=== PATIENT | male | born 2000 | race African-American/Black ===

== ENCOUNTER 2020-03-02 10:08 | Emergency (ER) | payer OTHER, SELFPAY ==
--- NOTE | ~2020-03-02 | XR_ITS ---
EXAMINATION: XR orbits min 4V DATE: 03/02/2020 10:51 INDICATION: Swollen left eye after injury. TECHNIQUE: 4 views of the orbits were obtained. COMPARISON: None. FINDINGS: There is slight rightward deviation of the nasal septum. No fracture. IMPRESSION: 1. No fracture. Reviewed, dictated and finalized at location B. IMPRESSION: 1. No fracture.
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
[2020-03-02 10:25] VITALS: BP 112/84; PULSE 82; RESP 16; TEMP 36.6; O2SAT 99
== END 2020-03-02 11:10 | disposition home or self-care (01) ==
PROVIDERS: Emergency Provider Internal Medicine Hematology & Oncology
DX: S05.92XA Unspecified injury of left eye and orbit, initial encounter (principal); W51.XXXA Accidental striking against or bumped into by another person, initial encounter
CPT/HCPCS: 70200; 99213; G0463

== ENCOUNTER 2021-11-12 19:03 | Emergency (ER) | payer OTHER, SELFPAY ==
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
[2021-11-12 19:17] VITALS: BP 119/71; PULSE 74; RESP 16; TEMP 35.9; O2SAT 100
[2021-11-12] MEDS: TETANUS,DIPHTHERIA,AC PERTUSSIS ADULT (0.5 ML) BOOSTRIX IM (19:41)
== END 2021-11-12 20:22 | disposition home or self-care (01) ==
PROVIDERS: Emergency Provider Nurse Practitioner
DX: S05.12XA Contusion of eyeball and orbital tissues, left eye, initial encounter (principal); S50.312A Abrasion of left elbow, initial encounter; S60.415A Abrasion of left ring finger, initial encounter; Z23 Encounter for immunization; Y04.2XXA Assault by strike against or bumped into by another person, initial encounter; Y92.39 Other specified sports and athletic area as the place of occurrence of the external cause; Y99.0 Civilian activity done for income or pay
CPT/HCPCS: 72050; 90471; 90715; 99213; G0463

== ENCOUNTER 2021-11-12 23:16 | Emergency (ER) | payer OTHER, SELFPAY ==
[2021-11-12 23:44] VITALS: BP 121/79; PULSE 74; RESP 16; TEMP 36.8; O2SAT 100
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
[2021-11-13] MEDS: CYCLOBENZAPRINE HCL 10 MG TABLET PO (04:11)
[2021-11-13] MEDS: IBUPROFEN 600 MG TABLET PO (04:14)
[2021-11-13 04:15] VITALS: BP 115/87; PULSE 86; RESP 16; O2SAT 100
== END 2021-11-13 04:17 | disposition home or self-care (01) ==
PROVIDERS: Emergency Provider Emergency Medicine
DX: S00.12XA Contusion of left eyelid and periocular area, initial encounter (principal); S09.90XA Unspecified injury of head, initial encounter; Y04.2XXA Assault by strike against or bumped into by another person, initial encounter
CPT/HCPCS: 99282; A9270